=== PATIENT | male | born 1955 | race Caucasian/White ===

== ENCOUNTER 2017-10-18 12:37 | Day surgery (SDC) | payer BC ==
[~2017-10-18] VITALS: Ht 177.8 cm; Wt 114.9 kg
[~2017-10-18 12:37] MED LIST: ALLO100 PO; COLCHICINE0.6 MG PO; COLCRYS0.6 MG PO; HYDMOR2 PO; IBUP800; INDO50 PO; Indomethacin50 MG PO; LEVSOD150 PO; LISHYD2025 PO; METF500 PO; OXYACE5T PO; PROB500 PO; ZESTORETIC 20-121 EA PO
[2017-10-18] MEDS ORDERED: AMLO5 (13:15)
[2017-10-18] MEDS ORDERED: ALLO100 (13:15)
== END 2017-10-18 15:22 | disposition home or self-care (01) ==
LOC: ORSCSDS 12:37
PROVIDERS: Internal Medicine Gastroenterology
PROC: 0DBM8ZX Excision of Descending Colon, Via Natural or Artificial Opening Endoscopic, Diagnostic (ICD-10-PCS; principal; 2017-10-18 14:00)
PROC: 0DBL8ZX Excision of Transverse Colon, Via Natural or Artificial Opening Endoscopic, Diagnostic (ICD-10-PCS; principal; 2017-10-18 14:00)
DX: Z12.11 Encounter for screening for malignant neoplasm of colon (principal); D12.3 Benign neoplasm of transverse colon; D12.4 Benign neoplasm of descending colon; K57.30 Diverticulosis of large intestine without perforation or abscess without bleeding; E11.9 Type 2 diabetes mellitus without complications; Z87.891 Personal history of nicotine dependence; I10 Essential (primary) hypertension; E03.9 Hypothyroidism, unspecified; E78.5 Hyperlipidemia, unspecified; Z79.84 Long term (current) use of oral hypoglycemic drugs; Z79.899 Other long term (current) drug therapy
CPT/HCPCS: 82947; 88305; J1980; J7120

== ENCOUNTER 2018-09-19 02:24 | Emergency (ER) | payer BC ==
[~2018-09-19] VITALS: Ht 177.8 cm; Wt 113.4 kg
[~2018-09-19 02:24] MED LIST changes: +ALLO100; +AMLO5
[2018-09-19] MEDS ORDERED: Zocor20 MG PO (03:01)
[2018-09-19 03:02] LABS: BASOPHILS ABSOLUTE AUTO 0.03 K/mm3 (0.00-0.23); BASOPHILS PERCENT AUTO 0 % (0-2); EOSINOPHILS ABSOLUTE AUTO 0.51 K/mm3 (0.00-0.68); EOSINOPHILS PERCENT AUTO 6 % (0-6); Hematocrit 48.2 % (37.0-53.0); Hemoglobin 16.4 g/dL (13.5-17.5); IMMATURE GRAN ABSOLUTE AUTO 0.03 K/mm3 (0.00-0.10); IMMATURE GRAN PERCENT AUTO 0 % (0-1); LYMPHOCYTES ABSOLUTE AUTO 2.67 K/mm3 (0.84-5.20); LYMPHOCYTES PERCENT AUTO 29 % (21-46); MONOCYTES ABSOLUTE AUTO 0.81 K/mm3 (0.16-1.47); MONOCYTES PERCENT AUTO 9 % (4-13); Mean Corpuscular HGB 31.7 pg (26.0-34.0); Mean Corpuscular Volume 93 fL (80-100); Mean Platelet Volume 8.4 fL (9.1-12.4); NEUTROPHILS ABSOLUTE AUTO 5.04 K/mm3 (1.96-9.15); NEUTROPHILS PERCENT AUTO 56 % (41-73); Platelet Count 231 K/mm3 (150-400); RDW Coefficient Variation 12.7 % (11.7-14.2); RDW Standard Deviation 43.6 fL (35.1-46.3); Red Blood Cell Count 5.18 M/mm3 (4.30-5.90); White Blood Cell Count 9.09 K/mm3 (4.00-11.30)
[2018-09-19 03:20] LABS: Alanine Aminotransfer (ALT/SGP 102 U/L (12-78); Albumin, Blood 3.8 g/dL (3.4-5.0); Alk Phos 50 U/L (50-136); Anion Gap 6 mmol/L (6-16); Aspartate Aminotrans (AST/SGOT 37 U/L (12-37); Bilirubin, Total 0.4 mg/dL (0.1-1.0); Blood Urea Nitrogen 22 mg/dL (8-24); Bun/Creatinine Ratio 18.5 (12.0-20.0); CO2, Blood 27 mmol/L (21-32); Calcium, Blood 8.7 mg/dL (8.5-10.1); Chloride, Blood 108 mmol/L (98-108); Creatinine, Blood 1.19 mg/dL (0.60-1.20); Globulin, Blood 3.8 g/dL (2.2-4.0); Glomerular Filtration Rate >60 (60-); Glucose, Blood 163 mg/dL (70-99); Sodium, Blood 141 mmol/L (136-145); Total Protein, Blood 7.6 g/dL (6.4-8.2)
[2018-09-19] MEDS ORDERED: Norco 5-325 Ta1 EACH PO (04:25)
[2018-09-19] MEDS ORDERED: ONDA4ODT MM (04:25)
== END 2018-09-19 04:45 | disposition home or self-care (01) ==
LOC: ER 02:24
PROVIDERS: Emergency Medicine
DX: N13.2 Hydronephrosis with renal and ureteral calculous obstruction (principal); Z88.0 Allergy status to penicillin; Z79.899 Other long term (current) drug therapy; Z79.84 Long term (current) use of oral hypoglycemic drugs
CPT/HCPCS: 36415; 74176; 80053; 85025; 96361; 96374; 96375; 99284-25; A9270; A9270-GY; J1170; J1885; J2405; J7030

== ENCOUNTER → 2021-09-09 | Outpatient (CLI) | payer BC ==
[~2021-09-09] MED LIST changes: +Norco 5-325 Ta1 EACH PO; +ONDA4ODT MM; +Zocor20 MG PO
== END | disposition home or self-care (01) ==
LOC: LAB SHORT 11:14
DX: C44.41 Basal cell carcinoma of skin of scalp and neck (principal)
CPT/HCPCS: 88305

== ENCOUNTER → 2021-09-29 | Outpatient (CLI) | payer BC | END | disposition home or self-care (01) | LOC: LAB SHORT 12:34 → PLD 12:34 | DX: C44.41 Basal cell carcinoma of skin of scalp and neck (principal) | CPT/HCPCS: 88305 ==

== ENCOUNTER → 2022-03-22 | Outpatient (CLI) | payer BC | END | disposition home or self-care (01) | LOC: LAB SHORT 11:23 | DX: L82.0 Inflamed seborrheic keratosis (principal); L57.0 Actinic keratosis | CPT/HCPCS: 88305 ==

== ENCOUNTER 2023-03-24 08:26 | Day surgery (SDC) | payer OTHER ==
[~2023-03-24] VITALS: Ht 175.3 cm; Wt 113.3 kg
[2023-03-24] MEDS ORDERED: EUTHYROX150 MC1 (08:54)
[2023-03-24] MEDS ORDERED: OMEP20ER (08:54)
[2023-03-24 11:03] VITALS: BP 107/68
== END 2023-03-24 11:02 | disposition home or self-care (01) ==
LOC: ORSCSDS 08:26
PROVIDERS: Internal Medicine Gastroenterology
PROC: 0DBP8ZX Excision of Rectum, Via Natural or Artificial Opening Endoscopic, Diagnostic (ICD-10-PCS; principal; 2023-03-24 09:45)
DX: Z12.11 Encounter for screening for malignant neoplasm of colon (principal); Z86.010 Personal history of colon polyps; K57.30 Diverticulosis of large intestine without perforation or abscess without bleeding; E11.9 Type 2 diabetes mellitus without complications; R12 Heartburn; Z68.37 Body mass index [BMI] 37.0-37.9, adult; Z79.899 Other long term (current) drug therapy; Z79.84 Long term (current) use of oral hypoglycemic drugs
CPT/HCPCS: 82947; 88305; J2704; J7120

== ENCOUNTER → 2023-04-13 | Outpatient (CLI) | payer OTHER ==
[~2023-04-13] MED LIST changes: +EUTHYROX150 MC1; +OMEP20ER
== END ==
LOC: LAB SHORT 13:53 → LAB 13:53
DX: D04.61 Carcinoma in situ of skin of right upper limb, including shoulder (principal)
CPT/HCPCS: 88305

== ENCOUNTER → 2024-09-06 | Outpatient (CLI) | payer OTHER ==
[2024-09-06 15:45] LABS: Uric Acid, Blood 6.7 mg/dL (3.5-7.2)
[2024-09-06 15:46] LABS: Alanine Aminotransfer (ALT/SGP 52 U/L (12-78); Albumin, Blood 3.7 g/dL (3.4-5.0); Albumin/Globulin Ratio 0.9 (0.8-1.8); Alk Phos 45 U/L (50-136); Anion Gap 8 mmol/L (3-11); Aspartate Aminotrans (AST/SGOT 27 U/L (12-37); Bilirubin, Total 0.6 mg/dL (0.1-1.0); Blood Urea Nitrogen 24 mg/dL (8-24); CHOL/HDL RATIO 3.8; CO2, Blood 26 mmol/L (21-32); Calcium, Blood 9.4 mg/dL (8.5-10.1); Chloride, Blood 106 mmol/L (98-108); Cholesterol 115 mg/dL (50-200); Globulin, Blood 3.9 g/dL (2.2-4.0); Glucose, Blood 102 mg/dL (70-99); HDL Cholesterol 30 mg/dL (>39); LDL/HDL RATIO 2.2; Low Density Lipoprotein Chol 65 mg/dL (0-110); Potassium, Blood 4.3 mmol/L (3.5-5.5); Sodium, Blood 136 mmol/L (136-145); Total Protein, Blood 7.6 g/dL (6.4-8.2); Triglycerides 100 mg/dL (30-160); Very Low Density Lipoprot Chol 20 mg/dL (6-32)
[2024-09-06 15:51] LABS: Microalb/Creat Ratio UR, Rand 70.086 mg/g (0.000-30.000); Microalbumin, Random Urine 81.3 mg/L (0.000-20.000)
[2024-09-06 15:55] LABS: Bun/Creatinine Ratio 22.4 (12.0-20.0); Creatinine, Blood 1.07 mg/dL (0.60-1.20); Glomerular Filtration Rate 75 (60-)
== END ==
LOC: LAB SHORT 13:29 → LAB 13:29
PROVIDERS: Internal Medicine
DX: E03.9 Hypothyroidism, unspecified (principal); E11.69 Type 2 diabetes mellitus with other specified complication; E78.00 Pure hypercholesterolemia, unspecified; Z87.39 Personal history of other diseases of the musculoskeletal system and connective tissue
CPT/HCPCS: 80053; 80061; 82043; 82570; 83036; 84443; 84550